=== PATIENT | male | born 1990 | race Caucasian/White ===

== ENCOUNTER 2023-12-18 06:20 | Emergency (ER) | payer OTHER ==
[2023-12-18 06:30] VITALS: BP 132/83; PULSE 67; RESP 18; TEMP 97.7; BMI 29.8
[2023-12-18] MEDS ORDERED: TETRACAINE 0.5% OPHTH SOLN 2 ML BOTTLE ONE ×2 (08:10→10:04)
[2023-12-18] MEDS: TETRACAINE 0.5% HCL 0.6ML DROPPER.BOTTLE OS ONE (08:17)
[2023-12-18] MEDS ORDERED: FLUORESCEIN NA 1 EA STRIP ONE (10:03)
[2023-12-18] MEDS ORDERED: ARTIFICIAL TEARS OPHTHALMIC DROPS OS PRN (10:59)
[2023-12-18] MEDS ORDERED: ERYTHROMYCIN 0.5% OPHTHALMIC OINTMENT 3.5 GM TUBE ONE (11:04)
[2023-12-18] MEDS: FLUORESCEIN NA 1 EA STRIP OS ONE (11:11)
[2023-12-18] MEDS ORDERED: ERYTHROMYCIN 0.5% OPHTHALMIC OINTMENT 3.5 GM TUBE OS SCH (11:19)
[2023-12-18] MEDS: ERYTHROMYCIN 0.5% OPHTHALMIC OINTMENT 3.5 GM TUBE OS SCH (11:19)
== END 2023-12-18 11:20 | disposition home or self-care (01) ==
LOC: JER 06:20
DX: H53.8 Other visual disturbances (principal); T54.2X4A Toxic effect of corrosive acids and acid-like substances, undetermined, initial encounter
CPT/HCPCS: 99283-25